=== PATIENT | female | born 2005 | race Caucasian/White ===

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

== ENCOUNTER 2025-05-14 18:11 | Emergency (ER) | payer OTHER ==
[~2025-05-14] VITALS: Ht 152.4 cm; Wt 70.8 kg
[2025-05-14] MEDS ORDERED: BUTALB-ACETAMI1 EACH PO (20:11)
[2025-05-14] MEDS ORDERED: ONDANSETRON 4 MG HOME.PACK SL ONE (20:30)
[2025-05-14] MEDS ORDERED: CYCLOBENZAPRINE HCL 10 MG HOME.PACK PO ONE (20:30)
[2025-05-14 20:39] VITALS: BP 101/56
== END 2025-05-14 20:38 | disposition home or self-care (01) ==
LOC: ED 18:11
DX: S09.90XA Unspecified injury of head, initial encounter (principal); W01.10XA Fall on same level from slipping, tripping and stumbling with subsequent striking against unspecified object, initial encounter
CPT/HCPCS: 70450; 99283; A9270